=== PATIENT | male | born 1965 | race African-American/Black ===

== ENCOUNTER 2018-07-26 20:05 | Emergency (ER) | payer OTHER ==
[~2018-07-26] VITALS: Ht 172.7 cm; Wt 81.8 kg
[2018-07-26] MEDS ORDERED: GLUCAGON,HUMAN RECOMBINANT 1 MG VIAL IM ONE (22:30)
[2018-07-27] MEDS ORDERED: GLUCAGON,HUMAN RECOMBINANT 1 MG VIAL IM ONE (00:15)
[2018-07-27] MEDS ORDERED: PB/HYOSCY/ATR/SCOP/LIDO/MAALOX 55 ML BOTTLE PO ONE (01:15)
[2018-07-27 08:10] VITALS: BP 116/85
== END 2018-07-27 08:27 | disposition home or self-care (01) ==
LOC: EMS 20:07
DX: K94.23 Gastrostomy malfunction (principal); R13.10 Dysphagia, unspecified
CPT/HCPCS: 43763; 70490; 71250; 96372; 99284; J1610 ×2